=== PATIENT | male | born 1940 | race Caucasian/White ===

== ENCOUNTER → 2019-01-27 | Outpatient (REF) | payer MEDICARE, BC ==
[2019-01-27 15:20] LABS: BLOOD UREA NITROGEN 19 MG/DL (7-18); CREATININE FOR GFR 0.96 MG/DL (0.70-1.30); GLOMERULAR FILTRATION RATE > 60.0 (>35)
== END ==
LOC: M LABNEURO 14:07
PROVIDERS: ATTEND Physician Assistant Medical
DX: I10 Essential (primary) hypertension (principal)

== ENCOUNTER → 2019-03-27 | Outpatient (CLI) | payer MEDICARE, BC ==
[~2019-03-27] MED LIST: ISOVUE-370 76% 100ML VIAL (Q9967) As Ordered ONE
--- NOTE | 2019-03-27 14:46 | REP ---
CT ANGIOGRAPHY OF THE CAROTID ARTERIES WITH IV CONTRAST: HISTORY: Stenosis of the carotid arteries. No comparison carotid imaging. CT CONTRAST DOSE: 100 mL of intravenous Isovue 370. CT ANGIOGRAPHIC FINDINGS: There is some vascular calcification in the transverse aorta. The common carotid arteries are unremarkable bilaterally. The cervical vertebral artery segments are normal and codominant. There is some vascular calcification at the origin on the left but no evidence of stenosis is seen. The distal vertebral arteries are unremarkable. There is mild calcification in the proximal ICA on the right side without observable stenosis. The proximal ICA on the left shows no evidence of stenosis. Mild calcific plaquing is noted. The distal internal carotid arteries are somewhat tortuous bilaterally but intact. There is mild vascular calcification in the distal cervical segment on the right. Minimal vascular calcification is visible in the carotid siphon on the right and left. IMPRESSION: No evidence of significant stenosis. Mild calcific plaquing in the proximal ICAs bilaterally. Electronically Signed by Terrence Christian MD 03/27/2019 05:11 P
--- NOTE | 2019-03-27 14:53 | REP ---
CT ANGIOGRAPHY OF THE BRAIN WITH IV CONTRAST: HISTORY: Carotid artery stenosis. CT CONTRAST DOSE: 100 mL of intravenous Isovue 370. CT FINDINGS: There is minimal vascular calcification in the distal cervical carotid arteries bilaterally. There is moderate carotid siphon calcification bilaterally with suspected bilateral distal ICA narrowing. This appears more prominent on the left than the right. There is no evidence of brown aneurysm. Distal vertebral arteries are patent. Basilar artery is widely patent. Posterior cerebral arteries are unremarkable. The anterior and middle cerebral arteries are unremarkable bilaterally. Maximal intensity projection images and MPR images are unremarkable. The sagittal and sigmoid sinuses are patent. The right sigmoid sinus is a little larger than the left. IMPRESSION: Moderate bilateral carotid siphon distal ICA calcification, left more so than right. Otherwise negative. Electronically Signed by Terrence Christian MD 03/27/2019 05:12 P
== END ==
LOC: M RAD 10:07
PROVIDERS: ATTEND Surgery Vascular Surgery
DX: I65.23 Occlusion and stenosis of bilateral carotid arteries (principal)
CPT/HCPCS: 70496; 70498; Q9967